=== PATIENT | female | born 1985 | race Caucasian/White ===

== ENCOUNTER 2017-04-05 15:03 | Emergency (ER) | payer MEDICAID ==
[~2017-04-05] VITALS: Ht 154.9 cm; Wt 60.4 kg
[~2017-04-05 15:03] MED LIST: CLON2TAB PO
[2017-04-05 16:26] LABS: MICROSCOPIC AUTO
[2017-04-05 16:29] LABS: CULTURE INDICATED? YES
[2017-04-05] MEDS ORDERED: PHENAZOPYRIDINE 200 MG TABLET PO ONE (17:00)
[2017-04-05] MEDS ORDERED: MORPHINE SULFATE 4 MG/ML, 1ML IVPush ONE (17:00)
[2017-04-05] MEDS ORDERED: CEFDINIR 300 MG CAPSULE PO ONE (17:00)
[2017-04-05] MEDS ORDERED: PHENAZOPYRIDINE 200 MG TABLET ONE (17:09)
[2017-04-05] MEDS ORDERED: MORPHINE SULFATE 4 MG/ML, 1ML ONE (17:09)
[2017-04-05] MEDS ORDERED: CEFDINIR 300 MG CAPSULE ONE (17:09)
[2017-04-05 17:47] VITALS: BP 131/87
== END 2017-04-05 17:46 | disposition home or self-care (01) ==
LOC: ED 15:48
DX: N30.90 Cystitis, unspecified without hematuria (principal); N39.0 Urinary tract infection, site not specified; F43.10 Post-traumatic stress disorder, unspecified
CPT/HCPCS: 81001; 87077; 87086; 87186; 96374

== ENCOUNTER 2017-04-07 18:17 | Emergency (ER) | payer MEDICAID ==
[~2017-04-07] VITALS: Ht 154.9 cm; Wt 61.0 kg
[2017-04-07 19:11] LABS: BASOPHILS # (AUTO) 0.03 x10^3/uL (0-0.1); BASOPHILS % (AUTO) 0 % (0-1); EOSINOPHILS # (AUTO) 0.05 x10^3/uL (0-0.4); EOSINOPHILS % (AUTO) 1 % (1-7); LYMPHOCYTES # (AUTO) 2.59 x10^3/uL (1-3.4); LYMPHOCYTES % (AUTO) 30 % (22-44); MD NO; MEAN CORPUSCULAR HEMOGLOBIN 29.7 pg (27.0-34.8); MEAN CORPUSCULAR VOLUME 87.5 fL (80-100); MONOCYTES # (AUTO) 0.84 x10^3/uL (0.2-0.8); MONOCYTES % (AUTO) 10 % (2-9); NEUTROPHILS # (AUTO) 5.19 x10^3/uL (1.8-6.8); NEUTROPHILS % (AUTO) 60 % (42-75); PLATELET COUNT 409 x10^3/uL (130-400); RED BLOOD COUNT 4.65 x10^6/uL (3.82-5.3); RED CELL DISTRIBUTION WIDTH 13.4 % (9.6-15.2)
[2017-04-07 19:16] LABS: ALANINE AMINOTRANSFERASE 33 U/L (12-78); ALBUMIN 3.6 g/dL (3.4-5.0); ANION GAP 5 mmol/L (5-15); CHLORIDE 107 mmol/L (98-107); CREATININE 1.02 mg/dL (0.55-1.02)
[2017-04-07 19:21] LABS: ALKALINE PHOSPHATASE 57 U/L (45-117); BILIRUBIN,TOTAL 0.3 mg/dL (0.2-1.0); TOTAL PROTEIN 7.3 g/dL (6.4-8.2)
[2017-04-07] MEDS ORDERED: AMPICILLIN 1 GM in SODIUM CHLORIDE 0.9% 50 ML IV ONE (19:30)
[2017-04-07] MEDS ORDERED: KETOROLAC 30 MG/1 ML IVPush ONE (19:30)
[2017-04-07] MEDS ORDERED: SODIUM CHLORIDE 0.9% 1,000ML IVBOLUS ONE (19:30)
[2017-04-07] MEDS ORDERED: KETOROLAC 30 MG/1 ML ONE (19:33)
[2017-04-07 20:07] LABS: MICROSCOPIC INDICATED
[2017-04-07 20:08] LABS: CULTURE INDICATED? YES
[2017-04-07 20:59] VITALS: BP 118/79
== END 2017-04-07 21:02 | disposition home or self-care (01) ==
LOC: ED 20:39
DX: N30.00 Acute cystitis without hematuria (principal); F43.10 Post-traumatic stress disorder, unspecified
CPT/HCPCS: 36415; 74176; 80053; 81001; 83690; 84703; 85025; 87086; 96361; 96365; 96375; 99285; J0290; J1885; J7030

== ENCOUNTER 2017-08-16 12:29 | Emergency (ER) | payer MEDICAID ==
[~2017-08-16] VITALS: Ht 154.9 cm; Wt 56.9 kg
[2017-08-16] MEDS ORDERED: MECLIZINE CHEWABLE 25 MG TAB ONE (13:13)
[2017-08-16] MEDS ORDERED: PROMETHAZINE 25 MG/ML, 1ML ONE (13:13)
[2017-08-16 13:23] VITALS: BP 132/84
[2017-08-16] MEDS ORDERED: FUROSEMIDE (13:24)
[2017-08-16] MEDS ORDERED: CARVEDILOL (13:24)
[2017-08-16] MEDS ORDERED: MECLIZINE CHEWABLE 25 MG TAB PO ONE (13:30)
[2017-08-16] MEDS ORDERED: PROMETHAZINE 25 MG/ML, 1ML IM ONE (13:30)
== END 2017-08-16 14:03 | disposition home or self-care (01) ==
LOC: ED 13:50
DX: H66.002 Acute suppurative otitis media without spontaneous rupture of ear drum, left ear (principal); G24.3 Spasmodic torticollis; F43.10 Post-traumatic stress disorder, unspecified; G40.909 Epilepsy, unspecified, not intractable, without status epilepticus; Z90.49 Acquired absence of other specified parts of digestive tract; F17.200 Nicotine dependence, unspecified, uncomplicated; I50.9 Heart failure, unspecified
CPT/HCPCS: 96372; 99283; J2550

== ENCOUNTER 2017-09-15 03:41 | Emergency (ER) | payer MEDICAID ==
[~2017-09-15] VITALS: Ht 154.9 cm; Wt 58.8 kg
[~2017-09-15 03:41] MED LIST changes: +CARVEDILOL; +CLON1TAB PO; +FUROSEMIDE
[2017-09-15] MEDS ORDERED: KETOROLAC 30 MG/1 ML ONE (04:05)
[2017-09-15] MEDS ORDERED: MORPHINE SULFATE 4 MG/ML, 1ML ONE (04:06)
[2017-09-15 04:20] LABS: MICROSCOPIC AUTO
[2017-09-15 04:22] LABS: CULTURE INDICATED? YES
[2017-09-15] MEDS ORDERED: CEFTRIAXONE PMX 1GM/50ML 50 ML IV ONE (04:30)
[2017-09-15] MEDS ORDERED: KETOROLAC 30 MG/1 ML IVPush ONE (04:30)
[2017-09-15] MEDS ORDERED: MORPHINE SULFATE 4 MG/ML, 1ML IVPush PRN (04:30)
[2017-09-15 04:34] LABS: AMPHETAMINE SCREEN, URINE Positive (Negative); BARBITURATE SCREEN, URINE Negative (Negative); BENZODIAZEPINE SCREEN, URINE Positive (Negative); CANNABINOID SCREEN, URINE Positive (Negative); COCAINE SCREEN, URINE Negative (Negative); METHADONE SCREEN, URINE Negative (Negative); OPIATE SCREEN, URINE Negative (Negative)
[2017-09-15 04:41] LABS: BASOPHILS # (AUTO) 0.04 x10^3/uL (0-0.1); BASOPHILS % (AUTO) 0 % (0-1); EOSINOPHILS # (AUTO) 0.12 x10^3/uL (0-0.4); EOSINOPHILS % (AUTO) 1 % (1-7); LYMPHOCYTES # (AUTO) 3.47 x10^3/uL (1-3.4); LYMPHOCYTES % (AUTO) 32 % (22-44); MD NO; MEAN CORPUSCULAR HEMOGLOBIN 31.3 pg (27.0-34.8); MEAN CORPUSCULAR HGB CONC 34.9 g/dL (32.4-35.8); MEAN CORPUSCULAR VOLUME 89.6 fL (80-100); MEAN PLATELET VOLUME 7.8 fL (7.4-10.4); MONOCYTES # (AUTO) 1.06 x10^3/uL (0.2-0.8); MONOCYTES % (AUTO) 10 % (2-9); NEUTROPHILS # (AUTO) 6.07 x10^3/uL (1.8-6.8); NEUTROPHILS % (AUTO) 56 % (42-75); PLATELET COUNT 407 x10^3/uL (130-400); RED BLOOD COUNT 4.58 x10^6/uL (3.82-5.3); RED CELL DISTRIBUTION WIDTH 12.9 % (9.6-15.2)
[2017-09-15] MEDS ORDERED: CEFTRIAXONE PMX 1GM/50ML 50 ML ONE (04:44)
[2017-09-15 04:53] LABS: ALBUMIN 3.7 g/dL (3.4-5.0); ANION GAP 10 mmol/L (5-15); CALCIUM 8.8 mg/dL (8.5-10.1); CHLORIDE 105 mmol/L (98-107)
[2017-09-15 04:59] LABS: ALANINE AMINOTRANSFERASE 22 U/L (12-78); ALKALINE PHOSPHATASE 49 U/L (45-117); BILIRUBIN,TOTAL 0.8 mg/dL (0.2-1.0); CREATININE 1.23 mg/dL (0.55-1.02); TOTAL PROTEIN 7.3 g/dL (6.4-8.2)
[2017-09-15] MEDS ORDERED: SODIUM CHLORIDE 0.9% 1,000ML IVBOLUS ONE (05:00)
[2017-09-15] MEDS ORDERED: LORazepam 2 MG/ML, 1ML ONE (05:14)
[2017-09-15] MEDS ORDERED: LORazepam 2 MG/ML, 1ML IVPush ONE (05:30)
[2017-09-15 06:23] VITALS: BP 124/74
== END 2017-09-15 06:58 | disposition home or self-care (01) ==
LOC: ED 05:56
DX: N30.00 Acute cystitis without hematuria (principal); F15.10 Other stimulant abuse, uncomplicated; F41.1 Generalized anxiety disorder; R45.1 Restlessness and agitation; G40.909 Epilepsy, unspecified, not intractable, without status epilepticus; F17.210 Nicotine dependence, cigarettes, uncomplicated; Z79.899 Other long term (current) drug therapy
CPT/HCPCS: 36415; 71045; 80053; 80307; 81001; 81025; 83690; 83880; 85025; 87086; 96365; 96375; 99285; J0696; J1885; J2060; J7030

== ENCOUNTER 2019-11-02 17:37 | Inpatient (IN) | payer MEDICAID ==
[~2019-11-02] VITALS: Ht 157.5 cm; Wt 64.5 kg
[2019-11-02] MEDS ORDERED: PROMETHAZINE 25 MG/ML, 1ML IM ONE (18:30)
[2019-11-02] MEDS ORDERED: SODIUM CHLORIDE FLUSH 10ML SYR IVF ONE (18:30)
[2019-11-02] MEDS ORDERED: PROMETHAZINE 25 MG/ML, 1ML ONE (18:37)
[2019-11-02 19:09] LABS: MEAN CORPUSCULAR HGB CONC 34.1 g/dL (32.4-35.8); MEAN CORPUSCULAR VOLUME 85.2 fL (80-100); MEAN PLATELET VOLUME 8.3 fL (7.4-10.4); PLATELET COUNT 266 x10^3/uL (130-400); RED BLOOD COUNT 4.97 x10^6/uL (3.82-5.3); RED CELL DISTRIBUTION WIDTH 16.1 % (9.6-15.2)
[2019-11-02 19:17] LABS: ALBUMIN 3.8 g/dL (3.4-5.0); ANION GAP 13 mmol/L (5-15); CHLORIDE 100 mmol/L (98-107); CREATININE 4.47 mg/dL (0.55-1.02)
[2019-11-02 19:22] LABS: ALKALINE PHOSPHATASE 46 U/L (45-117); BILIRUBIN,TOTAL 0.5 mg/dL (0.2-1.0); TOTAL PROTEIN 7.6 g/dL (6.4-8.2)
[2019-11-02 19:24] LABS: ALANINE AMINOTRANSFERASE 32 U/L (12-78)
[2019-11-02 19:31] LABS: MD YES
[2019-11-02 19:39] LABS: BAND#(MANUAL) 0.07 x10^3/uL; BANDS%(MANUAL) 1 % (0-7); EOS#(MANUAL) 0.07 x10^3/uL (0.0-0.4); EOS% (MANUAL) 1 % (1-7); LYMPH#(MANUAL) 2.14 x10^3/uL (1-3.4); LYMPHS% (MANUAL) 31 % (22-44); MONOS% (MANUAL) 16 % (2-9); SEG#(MANUAL) 3.52 x10^3/uL (1.8-6.8); SEGS% (MANUAL) 51 % (42-75)
[2019-11-02 19:40] LABS: <PLATELET ESTIMATE> ADEQUATE; <PLT MORPHOLOGY> NORMAL PLT MORPH; <RBC MORPHOLOGY> NORMAL
--- NOTE | 2019-11-02 21:04 | NUR ---
Assumed care at this time, pt is here for sob and fatigue. Pt has CHF and reports she is retaining fluid. Pt reports she only has a 10% EF at this time. Former drug use.
--- NOTE | 2019-11-02 21:27 | NUR ---
Pt found HOTN upon vitals check, pt 1liter bolus started per md. pt very anxious and moving alot in bed. Pt reports she has very bad pain.
[2019-11-02] MEDS ORDERED: LORazepam 2 MG/ML, 1ML IVPush ONE ×2 (21:30→23:30)
[2019-11-02] MEDS ORDERED: SODIUM CHLORIDE 0.9% 1,000ML IVBOLUS ONE (21:30)
[2019-11-02] MEDS ORDERED: LORazepam 2 MG/ML, 1ML ONE ×2 (21:57→23:19)
--- NOTE | 2019-11-02 22:18 | NUR ---
Previous iv infiltrated, bolus stopped. New iv placed 22g in left ac. Pt bolus restarted and medicated per emar.
--- NOTE | 2019-11-02 23:30 | NUR ---
MD valenzuela informed of pt behaving erratically while sleeping. Informed that pt is becoming more tachycardic and HOTN is intermittent. Pt is struggling with IV BOLUS as she does not keep her arm straight. Pt informed of need to keep arm straight and given pillow for comfort under arm to keep it straight. Pt given 1mg of additional ativan IV for a total of 2mg IV
--- NOTE | 2019-11-02 23:41 | NUR ---
Dr. Goss at bedside.
--- NOTE | 2019-11-02 23:48 | NUR ---
Report to Sherie ALATORRE
--- NOTE | 2019-11-02 23:49 | NUR ---
Report received from LANDRY Celis. This RN to assume care.
[2019-11-03] MEDS: HEPARIN 5,000 UNITS/ML, 1ML SQ SCH ×4 (00:30→23:59)
[2019-11-03] MEDS ORDERED: LABETALOL 5MG/ML, 20ML IVPush PRN (00:30)
[2019-11-03] MEDS ORDERED: LACTATED RINGERS 1,000 ML IV SCH (00:30)
[2019-11-03] MEDS ORDERED: ONDANSETRON 2MG/ML, 2ML IVPush PRN (00:30)
[2019-11-03 00:35] LABS: AMPHETAMINE SCREEN, URINE Positive (Negative); BARBITURATE SCREEN, URINE Negative (Negative); BENZODIAZEPINE SCREEN, URINE Negative (Negative); CANNABINOID SCREEN, URINE Negative (Negative); COCAINE SCREEN, URINE Negative (Negative); METHADONE SCREEN, URINE Negative (Negative); OPIATE SCREEN, URINE Positive (Negative)
[2019-11-03] MEDS ORDERED: PHARMACY MAY ADJ FOR RENAL FX MC PRN (01:00)
--- NOTE | 2019-11-03 01:00 | NUR ---
Report given to LANDRY River. Patient transferred to room 332.
[2019-11-03 01:11] VITALS: BP 122/63
[2019-11-03 04:11] LABS: MICROSCOPIC AUTO
[2019-11-03 04:12] LABS: CHLORIDE,URINE RANDOM 53 mmol/L; POTASSIUM,URINE RANDOM 34 mmol/L; SODIUM,URINE RANDOM 87 mmol/L
[2019-11-03 04:32] LABS: BASOPHILS # (AUTO) 0.03 x10^3/uL (0-0.1); BASOPHILS % (AUTO) 1 % (0-1); EOSINOPHILS # (AUTO) 0.13 x10^3/uL (0-0.4); EOSINOPHILS % (AUTO) 2 % (1-7); LYMPHOCYTES # (AUTO) 1.45 x10^3/uL (1-3.4); LYMPHOCYTES % (AUTO) 25 % (22-44); MD NO; MEAN CORPUSCULAR HEMOGLOBIN 28.8 pg (27.0-34.8); MEAN CORPUSCULAR HGB CONC 33.9 g/dL (32.4-35.8); MEAN PLATELET VOLUME 8.6 fL (7.4-10.4); MONOCYTES # (AUTO) 0.98 x10^3/uL (0.2-0.8); MONOCYTES % (AUTO) 17 % (2-9); NEUTROPHILS # (AUTO) 3.33 x10^3/uL (1.8-6.8); NEUTROPHILS % (AUTO) 56 % (42-75); PLATELET COUNT 263 x10^3/uL (130-400); RED BLOOD COUNT 4.63 x10^6/uL (3.82-5.3); RED CELL DISTRIBUTION WIDTH 16.4 % (9.6-15.2)
[2019-11-03 04:45] LABS: ANION GAP 12 mmol/L (5-15); CALCIUM 8.3 mg/dL (8.5-10.1); CHLORIDE 105 mmol/L (98-107)
[2019-11-03 04:47] LABS: CREATININE 3.04 mg/dL (0.55-1.02)
[2019-11-03 07:23] VITALS: BP 81/57
[2019-11-03] MEDS ORDERED: KETOROLAC 30 MG/1 ML IVPush PRN (09:30)
[2019-11-03] MEDS: KETOROLAC 30 MG/1 ML IVPush PRN ×2 (09:41→22:03)
[2019-11-03 14:00] VITALS: BP 88/53
[2019-11-03 18:39] VITALS: BP 105/65
[2019-11-03] MEDS: LACTATED RINGERS 1,000 ML IV SCH (22:08)
[2019-11-03] MEDS ORDERED: SPIR25TA5 PO (23:51)
[2019-11-03] MEDS ORDERED: FURO-93 PO (23:51)
[2019-11-03] MEDS ORDERED: METO25TA4 PO (23:51)
[2019-11-03] MEDS: OXYcodone IR 5MG TABLET PO PRN (23:58)
[2019-11-04 00:17] VITALS: BP 93/62
[2019-11-04] MEDS: NICOTINE 21 MG/24 HR PATCH.TD24 TD SCH (00:32)
[2019-11-04 06:21] VITALS: BP 138/85
[2019-11-04 08:46] LABS: BASOPHILS # (AUTO) 0.02 x10^3/uL (0-0.1); BASOPHILS % (AUTO) 0 % (0-1); EOSINOPHILS # (AUTO) 0.27 x10^3/uL (0-0.4); EOSINOPHILS % (AUTO) 6 % (1-7); LYMPHOCYTES # (AUTO) 2.38 x10^3/uL (1-3.4); LYMPHOCYTES % (AUTO) 48 % (22-44); MD NO; MEAN CORPUSCULAR HEMOGLOBIN 28.1 pg (27.0-34.8); MEAN CORPUSCULAR HGB CONC 32.3 g/dL (32.4-35.8); MEAN PLATELET VOLUME 8.3 fL (7.4-10.4); MONOCYTES # (AUTO) 0.93 x10^3/uL (0.2-0.8); MONOCYTES % (AUTO) 19 % (2-9); NEUTROPHILS # (AUTO) 1.35 x10^3/uL (1.8-6.8); NEUTROPHILS % (AUTO) 27 % (42-75); PLATELET COUNT 253 x10^3/uL (130-400); RED BLOOD COUNT 4.32 x10^6/uL (3.82-5.3); RED CELL DISTRIBUTION WIDTH 16.2 % (9.6-15.2)
[2019-11-04] MEDS: OXYcodone IR 5MG TABLET PO PRN (08:48)
[2019-11-04] MEDS: HEPARIN 5,000 UNITS/ML, 1ML SQ SCH ×2 (08:48→16:30)
[2019-11-04 08:56] LABS: ANION GAP 7 mmol/L (5-15); CALCIUM 8.7 mg/dL (8.5-10.1); CHLORIDE 108 mmol/L (98-107); CREATININE 2.47 mg/dL (0.55-1.02)
[2019-11-04] MEDS: LISINOPRIL 5 MG TABLET PO SCH (10:40)
[2019-11-04 12:23] VITALS: BP 103/67
[2019-11-04] MEDS: KETOROLAC 30 MG/1 ML IVPush PRN (18:12)
[2019-11-04 18:22] VITALS: BP 107/73
[2019-11-04] MEDS: LACTATED RINGERS 1,000 ML IV SCH (20:29)
[2019-11-04] MEDS ORDERED: ZOLPIDEM 5MG TABLET PO ONE (23:00)
[2019-11-05] MEDS: HEPARIN 5,000 UNITS/ML, 1ML SQ SCH ×3 (00:03→18:30)
[2019-11-05 00:19] VITALS: BP 127/85
[2019-11-05] MEDS: NICOTINE 21 MG/24 HR PATCH.TD24 TD SCH ×2 (00:30→15:05)
[2019-11-05 07:25] VITALS: BP 105/72
[2019-11-05 11:15] VITALS: BP 102/64
[2019-11-05] MEDS: LISINOPRIL 5 MG TABLET PO SCH (11:23)
[2019-11-05 13:16] VITALS: BP 124/75
[2019-11-05] MEDS ORDERED: hydrOXyzine 50MG TABLET PO PRN (14:30)
[2019-11-05 14:58] LABS: ANION GAP 8 mmol/L (5-15); CALCIUM 8.1 mg/dL (8.5-10.1); CHLORIDE 111 mmol/L (98-107)
[2019-11-05 14:59] LABS: CREATININE 1.41 mg/dL (0.55-1.02)
[2019-11-05] MEDS: ALPRazolam 1MG TAB PO PRN ×2 (14:59→22:11)
[2019-11-05 20:09] VITALS: BP 156/100
[2019-11-06 01:19] VITALS: BP 144/99
[2019-11-06] MEDS: HEPARIN 5,000 UNITS/ML, 1ML SQ SCH ×2 (02:30→10:06)
[2019-11-06 05:35] LABS: ANION GAP 6 mmol/L (5-15); CHLORIDE 109 mmol/L (98-107); CREATININE 1.23 mg/dL (0.55-1.02)
[2019-11-06 05:36] LABS: BASOPHILS # (AUTO) 0.05 x10^3/uL (0-0.1); BASOPHILS % (AUTO) 1 % (0-1); EOSINOPHILS # (AUTO) 0.09 x10^3/uL (0-0.4); EOSINOPHILS % (AUTO) 1 % (1-7); LYMPHOCYTES # (AUTO) 2.74 x10^3/uL (1-3.4); LYMPHOCYTES % (AUTO) 39 % (22-44); MD NO; MEAN CORPUSCULAR HEMOGLOBIN 28.5 pg (27.0-34.8); MEAN CORPUSCULAR HGB CONC 32.8 g/dL (32.4-35.8); MEAN PLATELET VOLUME 8.3 fL (7.4-10.4); MONOCYTES # (AUTO) 0.66 x10^3/uL (0.2-0.8); MONOCYTES % (AUTO) 9 % (2-9); NEUTROPHILS # (AUTO) 3.49 x10^3/uL (1.8-6.8); NEUTROPHILS % (AUTO) 50 % (42-75); PLATELET COUNT 269 x10^3/uL (130-400); RED BLOOD COUNT 4.71 x10^6/uL (3.82-5.3); RED CELL DISTRIBUTION WIDTH 15.1 % (9.6-15.2)
[2019-11-06 07:30] VITALS: BP 130/83
[2019-11-06] MEDS: LISINOPRIL 5 MG TABLET PO SCH (10:06)
[2019-11-06] MEDS: ALPRazolam 1MG TAB PO PRN (10:06)
== END 2019-11-06 13:21 | disposition left against medical advice (07) | DRG 682 ==
LOC: ED 21:55 → EDIP 22:17 → 3N 11-03 01:09
PROVIDERS: ADMIT Family Medicine; ATTEND Hospitalist
DX: N17.0 Acute kidney failure with tubular necrosis (principal); G92 Toxic encephalopathy; I50.23 Acute on chronic systolic (congestive) heart failure; E87.1 Hypo-osmolality and hyponatremia; I42.9 Cardiomyopathy, unspecified; F43.10 Post-traumatic stress disorder, unspecified; F17.200 Nicotine dependence, unspecified, uncomplicated; F15.10 Other stimulant abuse, uncomplicated; E86.1 Hypovolemia; N18.3 Chronic kidney disease, stage 3 (moderate); I34.0 Nonrheumatic mitral (valve) insufficiency; R10.31 Right lower quadrant pain; F41.9 Anxiety disorder, unspecified; T42.4X5A Adverse effect of benzodiazepines, initial encounter; Z90.49 Acquired absence of other specified parts of digestive tract; Z03.818 Encounter for observation for suspected exposure to other biological agents ruled out; Z90.5 Acquired absence of kidney; Z88.1 Allergy status to other antibiotic agents; Z88.5 Allergy status to narcotic agent; Z88.8 Allergy status to other drugs, medicaments and biological substances
CPT/HCPCS: 36415; 71045; 74176; 76770; 80048; 80053; 80307; 81001; 82436; 82550; 82570; 83605; 83690; 83880; 84132; 84133; 84300; 84443; 84703; 85025; 87635; 93005; 93306; 96372; 96374; 99285; G0378; J1644; J1885; J2550; J2060; J7030; J7120

== ENCOUNTER 2019-11-16 02:23 | Emergency (ER) | payer MEDICAID ==
[~2019-11-16] VITALS: Ht 157.5 cm; Wt 59.6 kg
[~2019-11-16 02:23] MED LIST changes: +FURO-93 PO; +METO25TA4 PO; +SPIR25TA5 PO
[2019-11-16 02:24] VITALS: BP 148/98
--- NOTE | 2019-11-16 02:56 | NUR ---
PT AMBULATORY TO BATHROOM, NOW SLEEPING IN BED, EYES CLOSED, RESPIRATIONS EVEN AND UNLABORED.
[2019-11-16] MEDS ORDERED: AZITHROMYCIN 500 MG TABLET PO ONE (03:00)
[2019-11-16] MEDS ORDERED: CEFTRIAXONE 250 MG IM ONE (03:00)
[2019-11-16] MEDS ORDERED: CEFTRIAXONE 250 MG ONE (03:08)
[2019-11-16] MEDS ORDERED: AZITHROMYCIN 250 MG TABLET ONE (03:08)
[2019-11-16] MEDS ORDERED: BICILLIN-LA 2,400,000 UNITS/4 ML IM ONE (03:30)
== END 2019-11-16 03:24 | disposition home or self-care (01) ==
LOC: ED 02:46
DX: A53.9 Syphilis, unspecified (principal); R10.9 Unspecified abdominal pain; I50.9 Heart failure, unspecified; F17.200 Nicotine dependence, unspecified, uncomplicated; G40.909 Epilepsy, unspecified, not intractable, without status epilepticus; Z90.89 Acquired absence of other organs; Z90.49 Acquired absence of other specified parts of digestive tract; Z90.5 Acquired absence of kidney
CPT/HCPCS: 96372; 99283; J0561

== ENCOUNTER 2019-12-20 12:40 | Emergency (ER) | payer MEDICAID ==
[~2019-12-20] VITALS: Ht 154.9 cm; Wt 61.0 kg
--- NOTE | 2019-12-20 14:07 | NUR ---
PT PROVIDED WITH WARM BLANKETS. CLEAN CATCH URINE COLLECTED AND SENT. ERP AT BEDSIDE FOR EVAL. PT DENIES ANY FURTHER NEEDS, CALL LIGHT IN REACH.
[2019-12-20] MEDS ORDERED: ASPIRIN 81 MG TABLET CHEW PO ONE (14:30)
--- NOTE | 2019-12-20 14:38 | NUR ---
PT PROVIDED WITH ORAL LIQUIDS IN PREP FOR STRAIGHT CATH. DENIES ANY FURTHER NEEDS. CALL LIGHT IN REACH.
[2019-12-20 14:40] LABS: BASOPHILS # (AUTO) 0.03 x10^3/uL (0-0.1); BASOPHILS % (AUTO) 0 % (0-1); EOSINOPHILS # (AUTO) 0.23 x10^3/uL (0-0.4); EOSINOPHILS % (AUTO) 3 % (1-7); LYMPHOCYTES # (AUTO) 2.94 x10^3/uL (1-3.4); LYMPHOCYTES % (AUTO) 33 % (22-44); MD NO; MEAN CORPUSCULAR HEMOGLOBIN 29.9 pg (27.0-34.8); MEAN CORPUSCULAR HGB CONC 33.9 g/dL (32.4-35.8); MEAN CORPUSCULAR VOLUME 88.1 fL (80-100); MEAN PLATELET VOLUME 7.9 fL (7.4-10.4); MONOCYTES # (AUTO) 0.86 x10^3/uL (0.2-0.8); MONOCYTES % (AUTO) 10 % (2-9); NEUTROPHILS % (AUTO) 55 % (42-75); PLATELET COUNT 368 x10^3/uL (130-400); RED BLOOD COUNT 4.81 x10^6/uL (3.82-5.3); RED CELL DISTRIBUTION WIDTH 15.9 % (9.6-15.2)
[2019-12-20] MEDS ORDERED: ASPIRIN 81 MG TABLET CHEW ONE (14:40)
[2019-12-20 14:52] LABS: ALANINE AMINOTRANSFERASE 26 U/L (12-78); ALBUMIN 3.4 g/dL (3.4-5.0); ANION GAP 5 mmol/L (5-15); CALCIUM 8.6 mg/dL (8.5-10.1); CHLORIDE 113 mmol/L (98-107); CREATININE 0.86 mg/dL (0.55-1.02)
[2019-12-20 14:57] LABS: ALKALINE PHOSPHATASE 59 U/L (45-117); BILIRUBIN,TOTAL 0.3 mg/dL (0.2-1.0); TOTAL PROTEIN 6.8 g/dL (6.4-8.2); TROPONIN I < 0.015 ng/mL (0.000-0.045)
[2019-12-20] MEDS ORDERED: MORPHINE SULFATE 4 MG/ML, 1ML ONE ×2 (15:03→16:53)
[2019-12-20] MEDS: MORPHINE SULFATE 4 MG/ML, 1ML IVPush PRN ×2 (15:06→16:55)
[2019-12-20 15:38] LABS: MICROSCOPIC AUTO
--- NOTE | 2019-12-20 15:45 | NUR ---
IV STARTED WITH ULTRASOUND GUIDANCE, VIA XOCHITL ALATORRE. PT MEDICATED PER JUN. STRAIGHT CATH PERFORMED WITHOUT ISSUE. CXR AT BEDSIDE. PT AWAITING U/S AT THIS TIME. DENIES ANY FURTHER NEEDS OR CONCERNS, CALL LIGHT IN REACH.
--- NOTE | 2019-12-20 15:52 | NUR ---
PT TO ULTRASOUND AT THIS TIME.
[2019-12-20 18:56] VITALS: BP 112/64
== END 2019-12-20 18:57 | disposition home or self-care (01) ==
LOC: ED 13:30
DX: N30.00 Acute cystitis without hematuria (principal); R10.30 Lower abdominal pain, unspecified; G40.909 Epilepsy, unspecified, not intractable, without status epilepticus; R00.1 Bradycardia, unspecified; I50.9 Heart failure, unspecified; Z90.49 Acquired absence of other specified parts of digestive tract
CPT/HCPCS: 36415; 71045; 76830; 80053; 81001; 83690; 83880; 84484; 84703; 85025; 87077; 87086; 87186; 93005; 96374; 96376; 99285; J2270

== ENCOUNTER 2020-01-19 15:04 | Emergency (ER) | payer MEDICAID ==
[~2020-01-19] VITALS: Ht 154.9 cm; Wt 63.5 kg
--- NOTE | 2020-01-19 15:21 | NUR ---
ERP AT BEDSIDE FOR EVAL.
[2020-01-19] MEDS ORDERED: PROMETHAZINE 25 MG/ML, 1ML IM ONE (15:30)
[2020-01-19] MEDS ORDERED: DIPHENHYDRAMINE 50 MG/ML, 1ML IVPush ONE (15:30)
[2020-01-19] MEDS ORDERED: SODIUM CHLORIDE 0.9% 1,000ML IVBOLUS ONE (15:30)
[2020-01-19] MEDS ORDERED: PROMETHAZINE 25 MG/ML, 1ML ONE (15:40)
--- NOTE | 2020-01-19 15:45 | NUR ---
UNABLE PLACE PIC, REQUESTED ULTRASOUND PLACEMENT. INJ PHENERGAN NOW, TO CT.
[2020-01-19] MEDS ORDERED: DIPHENHYDRAMINE 50 MG/ML, 1ML ONE (15:53)
[2020-01-19] MEDS ORDERED: DIPHENHYDRAMINE 50 MG/ML, 1ML IM ONE (16:00)
--- NOTE | 2020-01-19 16:02 | NUR ---
UNABLE TO PLACE PIC, ERP INFORMED PT WITH STABLE VS. CHANGED TO IM MEDS. PT IN AGREEMENT
[2020-01-19] MEDS ORDERED: KETOROLAC 30 MG/1 ML IM ONE (16:30)
[2020-01-19] MEDS ORDERED: KETOROLAC 30 MG/1 ML ONE (16:42)
[2020-01-19 16:51] VITALS: BP 124/69
== END 2020-01-19 16:53 | disposition home or self-care (01) ==
LOC: ED 16:31
DX: G44.219 Episodic tension-type headache, not intractable (principal); G40.909 Epilepsy, unspecified, not intractable, without status epilepticus; R11.2 Nausea with vomiting, unspecified; H92.02 Otalgia, left ear; F17.200 Nicotine dependence, unspecified, uncomplicated; Z90.89 Acquired absence of other organs; Z90.49 Acquired absence of other specified parts of digestive tract
CPT/HCPCS: 70450; 96372; 99284; J1200; J1885; J2550

== ENCOUNTER 2020-02-04 21:30 | Emergency (ER) | payer MEDICAID ==
[~2020-02-04] VITALS: Ht 154.9 cm; Wt 65.0 kg
--- NOTE | 2020-02-04 23:06 | NUR ---
CALLED FOR PT. PT NOT IN LOBBY AT THIS TIME.
[2020-02-04 23:33] LABS: ALBUMIN 3.7 g/dL (3.4-5.0); ANION GAP 4 mmol/L (5-15); CALCIUM 8.7 mg/dL (8.5-10.1); CHLORIDE 114 mmol/L (98-107)
[2020-02-04 23:35] LABS: ALANINE AMINOTRANSFERASE 25 U/L (12-78); ALKALINE PHOSPHATASE 56 U/L (45-117); BILIRUBIN,TOTAL 0.3 mg/dL (0.2-1.0); CREATININE 1.14 mg/dL (0.55-1.02); TOTAL PROTEIN 7.4 g/dL (6.4-8.2); TROPONIN I < 0.015 ng/mL (0.000-0.045)
--- NOTE | 2020-02-04 23:37 | NUR ---
SAP TECHNICAL DEVELOPER: PT WALKED BACK FROM LOBBY TO ROOM AT THIS TIME. STEADY UPON AMBULATION.
--- NOTE | 2020-02-04 23:42 | NUR ---
PT AMBULATED BACK TO ROOM WITH A SMOOTH AND STEADY GAIT. PT APPEARS NAD, BUT IS ANXIOUS AND SPEECH IS RUSHED WHILE TALKING TO STAFF, PT STATES CHEST PAIN ON LEFT SIDE THAT FEELS LIKE PRESSURE, GROSS NEURO INTACT, PULSE 2+, NO EDEMA NOTED. WCTM PLACED ON SPO2/BP/ECG MONITORING. RESIDENT AT BS FOR EVAL AND POC.
[2020-02-04 23:54] LABS: BASOPHILS % (AUTO) 1 % (0-1); EOSINOPHILS % (AUTO) 3 % (1-7); LYMPHOCYTES % (AUTO) 38 % (22-44); MEAN CORPUSCULAR HEMOGLOBIN 30.9 pg (27.0-34.8); MONOCYTES % (AUTO) 13 % (2-9); NEUTROPHILS % (AUTO) 45 % (42-75); PLATELET COUNT 314 x10^3/uL (130-400); RED BLOOD COUNT 4.85 x10^6/uL (3.82-5.3); RED CELL DISTRIBUTION WIDTH 12.9 % (9.6-15.2)
[2020-02-04 23:57] LABS: MD NO
[2020-02-05] MEDS ORDERED: LORazepam 2 MG/ML, 1ML IVPush ONE
[2020-02-05] MEDS ORDERED: NITROGLYCERIN OINT 2%, 1GM TP ONE ×2 (00:10)
[2020-02-05] MEDS ORDERED: LABETALOL 20 MG/4 ML ONE ×2 (00:10→00:40)
[2020-02-05] MEDS ORDERED: LORazepam 2 MG/ML, 1ML ONE (00:11)
[2020-02-05] MEDS ORDERED: FUROSEMIDE 40 MG/4 ML IV ONE (00:30)
[2020-02-05] MEDS ORDERED: FUROSEMIDE 40 MG/4 ML ONE (00:40)
[2020-02-05] MEDS: LABETALOL 5MG/ML, 20ML IVPush ONE ×2 (00:46)
--- NOTE | 2020-02-05 00:48 | NUR ---
PER DR FELDMAN PT TO BE GIVEN LOPRESSOR AND LASIX THEN DC
--- NOTE | 2020-02-05 00:53 | NUR ---
PT MEDICATED PER MAR, UP TO RESTROOM AT THIS TIME
[2020-02-05 00:59] VITALS: BP 155/98
== END 2020-02-05 01:01 | disposition home or self-care (01) ==
LOC: ED 02-05 00:06
DX: R07.2 Precordial pain (principal); R06.00 Dyspnea, unspecified; I11.0 Hypertensive heart disease with heart failure; I50.21 Acute systolic (congestive) heart failure; F17.200 Nicotine dependence, unspecified, uncomplicated; Z90.49 Acquired absence of other specified parts of digestive tract
CPT/HCPCS: 36415; 71045; 80053; 83880; 84484; 84703; 85025; 93005; 96374; 96375; 99285; J1940; J2060

== ENCOUNTER 2020-02-29 17:14 | Emergency (ER) | payer MEDICAID ==
[~2020-02-29] VITALS: Ht 162.6 cm; Wt 65.7 kg
--- NOTE | 2020-02-29 17:43 | NUR ---
placed on laboratory monitor lab at bedside
--- NOTE | 2020-02-29 17:44 | NUR ---
radiology at bedside
[2020-02-29 17:57] LABS: BASOPHILS % (AUTO) 1 % (0-1); EOSINOPHILS % (AUTO) 2 % (1-7); LYMPHOCYTES % (AUTO) 32 % (22-44); MEAN CORPUSCULAR HEMOGLOBIN 31.3 pg (27.0-34.8); MEAN CORPUSCULAR HGB CONC 34.4 g/dL (32.4-35.8); MEAN PLATELET VOLUME 8.2 fL (7.4-10.4); MONOCYTES % (AUTO) 10 % (2-9); NEUTROPHILS % (AUTO) 56 % (42-75); PLATELET COUNT 292 x10^3/uL (130-400); RED BLOOD COUNT 4.28 x10^6/uL (3.82-5.3); RED CELL DISTRIBUTION WIDTH 12.3 % (9.6-15.2)
[2020-02-29 17:58] LABS: MD NO
[2020-02-29 18:08] LABS: ALANINE AMINOTRANSFERASE 24 U/L (12-78); ALBUMIN 3.5 g/dL (3.4-5.0); ANION GAP 6 mmol/L (5-15); CHLORIDE 115 mmol/L (98-107); CREATININE 0.95 mg/dL (0.55-1.02)
[2020-02-29 18:22] LABS: ALKALINE PHOSPHATASE 44 U/L (45-117); BILIRUBIN,TOTAL 0.3 mg/dL (0.2-1.0); TOTAL PROTEIN 6.5 g/dL (6.4-8.2); TROPONIN I < 0.015 ng/mL (0.000-0.045)
--- NOTE | 2020-02-29 18:52 | NUR ---
WITH REASSESSMENT- CHEST PAIN REMAINS /10. PROVIDER MADE AWARE BLOOD PRESSURE SLIGHTLY IMPROVED PATIENT REFUSING ASPIRIN
[2020-02-29] MEDS ORDERED: ASPIRIN 81 MG TABLET CHEW PO ONE (19:00)
[2020-02-29] MEDS ORDERED: LABETALOL 5MG/ML, 20ML IVPush ONE (19:30)
[2020-02-29] MEDS ORDERED: LABETALOL 5MG/ML, 20ML ONE (19:30)
[2020-02-29 20:04] VITALS: BP 143/87
--- NOTE | 2020-02-29 20:04 | NUR ---
REPORT TO WAYLON ALATORRE B/P IMPROVED TO 143/87, CHEST PAIN IMPROVED-PROVIDER AWARE
== END 2020-02-29 20:45 | disposition home or self-care (01) ==
LOC: ED 18:20
DX: R07.89 Other chest pain (principal); R05 Cough; R06.00 Dyspnea, unspecified; R42 Dizziness and giddiness; R11.0 Nausea; I11.0 Hypertensive heart disease with heart failure; I50.9 Heart failure, unspecified; F17.200 Nicotine dependence, unspecified, uncomplicated; G40.909 Epilepsy, unspecified, not intractable, without status epilepticus; Z90.49 Acquired absence of other specified parts of digestive tract; Z90.89 Acquired absence of other organs
CPT/HCPCS: 36415; 71045; 80053; 80162; 83880; 84484; 85025; 93005; 96374; 99285

== ENCOUNTER 2020-04-26 18:10 | Emergency (ER) | payer MEDICAID ==
[~2020-04-26] VITALS: Ht 154.9 cm; Wt 66.7 kg
--- NOTE | 2020-04-26 18:32 | NUR ---
PT UP TO BR AT THIS TIME. PT WITH STEADY GAIT
--- NOTE | 2020-04-26 18:53 | NUR ---
report recieved from salvador salguero
[2020-04-26 19:22] LABS: BASOPHILS % (AUTO) 1 % (0-1); EOSINOPHILS % (AUTO) 2 % (1-7); LYMPHOCYTES % (AUTO) 28 % (22-44); MEAN CORPUSCULAR HEMOGLOBIN 30.4 pg (27.0-34.8); MEAN CORPUSCULAR HGB CONC 34.1 g/dL (32.4-35.8); MEAN PLATELET VOLUME 8.2 fL (7.4-10.4); MONOCYTES % (AUTO) 9 % (2-9); NEUTROPHILS % (AUTO) 60 % (42-75); PLATELET COUNT 305 x10^3/uL (130-400); RED CELL DISTRIBUTION WIDTH 12.8 % (9.6-15.2)
[2020-04-26 19:23] LABS: MD NO
[2020-04-26 19:23] LABS: MICROSCOPIC AUTO
[2020-04-26 19:32] LABS: ALANINE AMINOTRANSFERASE 29 U/L (12-78); ALBUMIN 3.8 g/dL (3.4-5.0); ANION GAP 4 mmol/L (5-15); CALCIUM 8.2 mg/dL (8.5-10.1); CHLORIDE 112 mmol/L (98-107); CREATININE 1.28 mg/dL (0.55-1.02)
[2020-04-26 19:34] LABS: ALKALINE PHOSPHATASE 49 U/L (45-117); BILIRUBIN,TOTAL 0.3 mg/dL (0.2-1.0); TOTAL PROTEIN 7.3 g/dL (6.4-8.2)
[2020-04-26 20:10] VITALS: BP 128/62
--- NOTE | 2020-04-26 20:10 | NUR ---
Patient/Caregiver given discharge instructions and they have confirmed that they understand the instructions. Patient ambulatory with steady gait.
== END 2020-04-26 20:11 | disposition home or self-care (01) ==
LOC: ED 19:22
DX: R50.9 Fever, unspecified (principal); Z20.822 Contact with and (suspected) exposure to COVID-19; R05 Cough; R06.00 Dyspnea, unspecified; R06.02 Shortness of breath; J02.9 Acute pharyngitis, unspecified; I11.0 Hypertensive heart disease with heart failure; I50.9 Heart failure, unspecified; G40.909 Epilepsy, unspecified, not intractable, without status epilepticus; Z90.89 Acquired absence of other organs; Z90.49 Acquired absence of other specified parts of digestive tract
CPT/HCPCS: 36415; 71045; 80053; 81001; 85025; 87635; 93005; 99285

== ENCOUNTER 2020-08-11 16:06 | Emergency (ER) | payer MEDICAID ==
[~2020-08-11] VITALS: Ht 154.9 cm; Wt 67.4 kg
[2020-08-11 16:15] VITALS: BP 163/108
--- NOTE | 2020-08-11 16:18 | NUR ---
RACE STARTER: EKG DONE IN TRIAGE.
--- NOTE | 2020-08-11 17:50 | NUR ---
lab and radiology personel have called patient 4 seperate times to attempt scans/labs. No answer x 4.
--- NOTE | 2020-08-11 19:14 | NUR ---
PT NOT IN LOBBY AT THIS TIME
== END 2020-08-11 19:16 | disposition left against medical advice (07) ==
LOC: ED 16:36
DX: R50.9 Fever, unspecified (principal); R07.89 Other chest pain; Z20.822 Contact with and (suspected) exposure to COVID-19; Z53.21 Procedure and treatment not carried out due to patient leaving prior to being seen by health care provider
CPT/HCPCS: 93005; U0003; U0005

== ENCOUNTER 2020-08-16 03:23 | Emergency (ER) | payer MEDICAID ==
[~2020-08-16] VITALS: Ht 154.9 cm; Wt 67.5 kg
[2020-08-16] MEDS ORDERED: FENTANYL PF 100 MCG/2ML IV ONE (04:00)
[2020-08-16] MEDS ORDERED: PROMETHAZINE 25 MG/ML, 1ML IM ONE (04:00)
[2020-08-16] MEDS ORDERED: PROMETHAZINE 25 MG/ML, 1ML ONE (04:11)
[2020-08-16] MEDS ORDERED: FENTANYL PF 100 MCG/2ML ONE (04:11)
[2020-08-16] MEDS ORDERED: LABETALOL 5MG/ML, 20ML ONE (04:13)
[2020-08-16 04:14] LABS: BASOPHILS % (AUTO) 0 % (0-1); EOSINOPHILS % (AUTO) 2 % (1-7); LYMPHOCYTES % (AUTO) 34 % (22-44); MEAN CORPUSCULAR HEMOGLOBIN 30.4 pg (27.0-34.8); MEAN CORPUSCULAR HGB CONC 34.7 g/dL (32.4-35.8); MEAN PLATELET VOLUME 8.4 fL (7.4-10.4); MONOCYTES % (AUTO) 9 % (2-9); NEUTROPHILS % (AUTO) 54 % (42-75); PLATELET COUNT 341 x10^3/uL (130-400); RED BLOOD COUNT 4.96 x10^6/uL (3.82-5.3); RED CELL DISTRIBUTION WIDTH 12.5 % (9.6-15.2)
[2020-08-16 04:16] LABS: MD NO
[2020-08-16 04:22] LABS: ALBUMIN 4.3 g/dL (3.4-5.0); ANION GAP 3 mmol/L (5-15); CALCIUM 9.1 mg/dL (8.5-10.1); CHLORIDE 110 mmol/L (98-107); CREATININE 0.98 mg/dL (0.55-1.02)
[2020-08-16] MEDS ORDERED: LABETALOL 5MG/ML, 20ML IVPush ONE (04:30)
--- NOTE | 2020-08-16 04:36 | NUR ---
antiemetic given IM, pain med given IV, pt stated she felt better after recieving both meds, pain went to immediately to a 7 and was bearable to pt, all needs in reach, call light in reach, side rails up, lights off for pts comfort
--- NOTE | 2020-08-16 04:52 | NUR ---
Pt back from CT, grabbing head c/o 11/14 head pain still. Remains hypertensive, ERP informed waiting for further orders. AIDET provided.
[2020-08-16 04:53] VITALS: BP 180/100
[2020-08-16] MEDS ORDERED: KETOROLAC 30 MG/1 ML IVPush ONE (05:00)
[2020-08-16] MEDS ORDERED: KETOROLAC 30 MG/1 ML ONE ×2 (05:00→05:02)
--- NOTE | 2020-08-16 05:13 | NUR ---
pt a/ox4, pt complained of pain coming back, pain was at a 7 before and now back at 9, MD ordered IV pain meds and it was adminstered by this RN over one minute. Call light in reach, side rails up, bed in low position with brakes engaged, lights off for pts comfort
--- NOTE | 2020-08-16 05:30 | NUR ---
pt states that the pain is down to a 6 now and is much better than before
== END 2020-08-16 05:56 | disposition home or self-care (01) ==
LOC: ED 05:45
DX: R51.9 Headache, unspecified (principal); R11.2 Nausea with vomiting, unspecified; F17.210 Nicotine dependence, cigarettes, uncomplicated; R00.0 Tachycardia, unspecified; I11.0 Hypertensive heart disease with heart failure; I50.9 Heart failure, unspecified; F17.200 Nicotine dependence, unspecified, uncomplicated; Z90.89 Acquired absence of other organs; Z90.49 Acquired absence of other specified parts of digestive tract
CPT/HCPCS: 36415; 70450; 80048; 82040; 84703; 85025; 93005; 96372; 96374; 96375; 99285; 99406; J1885; J2550; J3010

== ENCOUNTER 2020-09-09 05:40 | Emergency (ER) | payer MEDICAID ==
[~2020-09-09] VITALS: Ht 154.9 cm; Wt 64.8 kg
[2020-09-09] MEDS ORDERED: DIPH,PERTUSS(ACELL),TET VAC/PF 0.5 ML IM-VACC ONE (06:00)
[2020-09-09] MEDS ORDERED: PROMETHAZINE 25 MG/ML, 1ML ONE (06:19)
[2020-09-09] MEDS ORDERED: PHENAZOPYRIDINE 200 MG TABLET ONE (06:19)
[2020-09-09] MEDS ORDERED: HYDROmorphone 1 MG/ML, 1ML INJ ONE (06:20)
[2020-09-09] MEDS ORDERED: SODIUM CHLORIDE FLUSH 10ML SYR IVF ONE (06:30)
[2020-09-09] MEDS ORDERED: SODIUM CHLORIDE 0.9% 1,000ML IV ONE (06:30)
[2020-09-09] MEDS ORDERED: HYDROmorphone 1 MG/ML, 1ML INJ IV ONE (06:30)
[2020-09-09] MEDS ORDERED: PROMETHAZINE 25 MG/ML, 1ML IM ONE (06:30)
[2020-09-09] MEDS ORDERED: PHENAZOPYRIDINE 200 MG TABLET PO ONE (06:30)
[2020-09-09 06:44] LABS: BASOPHILS % (AUTO) 1 % (0-1); EOSINOPHILS % (AUTO) 0 % (1-7); LYMPHOCYTES % (AUTO) 25 % (22-44); MEAN CORPUSCULAR HEMOGLOBIN 30.3 pg (27.0-34.8); MEAN CORPUSCULAR HGB CONC 34.8 g/dL (32.4-35.8); MEAN PLATELET VOLUME 8.3 fL (7.4-10.4); MONOCYTES % (AUTO) 14 % (2-9); NEUTROPHILS % (AUTO) 60 % (42-75); PLATELET COUNT 310 x10^3/uL (130-400); RED BLOOD COUNT 4.26 x10^6/uL (3.82-5.3)
[2020-09-09 06:45] LABS: MD NO
[2020-09-09 06:50] LABS: ALANINE AMINOTRANSFERASE 34 U/L (12-78); ALBUMIN 3.9 g/dL (3.4-5.0); ANION GAP 7 mmol/L (5-15); CALCIUM 8.4 mg/dL (8.5-10.1); CHLORIDE 109 mmol/L (98-107); CREATININE 1.06 mg/dL (0.55-1.02)
--- NOTE | 2020-09-09 06:52 | NUR ---
report from judy
[2020-09-09 06:54] LABS: ALKALINE PHOSPHATASE 45 U/L (45-117); BILIRUBIN,TOTAL 0.6 mg/dL (0.2-1.0); TOTAL PROTEIN 7.3 g/dL (6.4-8.2)
[2020-09-09 07:00] LABS: MICROSCOPIC INDICATED
[2020-09-09] MEDS ORDERED: CEFTRIAXONE 1,000 MG in DEXTROSE 5% 50 ML IVPB ONE (07:30)
--- NOTE | 2020-09-09 08:00 | NUR ---
ABX INFUSING. SEEN BY SONDRA SALINAS. PT TO BE DC AFTER ABX
[2020-09-09 08:01] VITALS: BP 163/103
--- NOTE | 2020-09-09 08:45 | NUR ---
Patient given discharge instructions and they have confirmed that they understand the instructions. Patient ambulatory with steady gait.
== END 2020-09-09 08:46 ==
LOC: ED 06:10
DX: N10 Acute pyelonephritis (principal); R10.31 Right lower quadrant pain; R11.2 Nausea with vomiting, unspecified; R56.9 Unspecified convulsions; R30.0 Dysuria; I11.0 Hypertensive heart disease with heart failure; I50.9 Heart failure, unspecified; Z88.9 Allergy status to unspecified drugs, medicaments and biological substances; Z90.89 Acquired absence of other organs; Z90.49 Acquired absence of other specified parts of digestive tract; Z79.899 Other long term (current) drug therapy
CPT/HCPCS: 36415; 80053; 81001; 83605; 83690; 84145; 84703; 85025; 87040; 87077; 87086; 96361; 96365; 96372; 96375; 99284; J0696; J1170; J2550; J7030; 87186

== ENCOUNTER 2020-09-18 15:01 | Emergency (ER) | payer MEDICAID ==
[~2020-09-18] VITALS: Ht 154.9 cm; Wt 64.3 kg
[2020-09-18 15:10] VITALS: BP 162/108
--- NOTE | 2020-09-18 19:04 | NUR ---
NIL X3 [id number]
--- NOTE | 2020-09-18 19:19 | NUR ---
hub cutter: Called for patient, patient not in lobby.
--- NOTE | 2020-09-18 19:37 | NUR ---
director learning: Called for patient, patient not in lobby for 3rd attempt.
== END 2020-09-18 19:39 | disposition left against medical advice (07) ==
LOC: ED 15:50
DX: M79.645 Pain in left finger(s) (principal); M79.644 Pain in right finger(s); M79.602 Pain in left arm; M79.601 Pain in right arm; Z53.21 Procedure and treatment not carried out due to patient leaving prior to being seen by health care provider

== ENCOUNTER 2020-10-10 05:49 | Emergency (ER) | payer MEDICAID ==
[~2020-10-10] VITALS: Ht 154.9 cm; Wt 65.0 kg
--- NOTE | 2020-10-10 06:10 | NUR ---
THIS IS A 35 YO F W/ C/O CP RADIATING INTO RT ARM AND NECK X2 HOURS. PT REPORTS HX OF ANXIETY, CHF, NEPHRECTOMY. RESP EVEN AND UNLABORED, CONNECTED TO ALL MONITORING, CHRISSY. Addendum: 10/10/20 at 0644 by [email or web address] THIS IS A 35 YO F W/ C/O CP RADIATING INTO LT ARM AND NECK X2 HOURS. PT REPORTS HX OF ANXIETY, CHF, NEPHRECTOMY. RESP EVEN AND UNLABORED, CONNECTED TO ALL MONITORING, CHRISSY
--- NOTE | 2020-10-10 06:11 | NUR ---
AT BEDSIDE FOR ED EVAL.
[2020-10-10] MEDS ORDERED: METHOCARBAMOL 750 MG TABLET ONE (06:27)
[2020-10-10] MEDS ORDERED: KETOROLAC 30 MG/1 ML ONE (06:27)
[2020-10-10] MEDS ORDERED: METHOCARBAMOL 750 MG TABLET PO ONE (06:30)
[2020-10-10] MEDS ORDERED: KETOROLAC 30 MG/1 ML IVPush ONE (06:30)
[2020-10-10 06:35] LABS: BASOPHILS % (AUTO) 1 % (0-1); EOSINOPHILS % (AUTO) 3 % (1-7); LYMPHOCYTES % (AUTO) 34 % (22-44); MEAN CORPUSCULAR HEMOGLOBIN 29.9 pg (27.0-34.8); MEAN CORPUSCULAR HGB CONC 34.9 g/dL (32.4-35.8); MEAN PLATELET VOLUME 8.7 fL (7.4-10.4); MONOCYTES % (AUTO) 12 % (2-9); NEUTROPHILS % (AUTO) 51 % (42-75); PLATELET COUNT 348 x10^3/uL (130-400); RED BLOOD COUNT 4.46 x10^6/uL (3.82-5.3); RED CELL DISTRIBUTION WIDTH 13.3 % (9.6-15.2)
--- NOTE | 2020-10-10 06:39 | NUR ---
PIV STARTED, LABS DRAWN, PT MEDICATED PER EMAR. PT HYPERTENSIVE, OTHER VS WDL. PT REPORTS HX OF HTN FOR WHICH SHE TAKES LISINOPRIL BID AND LABETALOL.
--- NOTE | 2020-10-10 06:44 | NUR ---
REPORT FROM LANDRY HAGAN
[2020-10-10 06:45] LABS: ALANINE AMINOTRANSFERASE 22 U/L (12-78); ALBUMIN 3.5 g/dL (3.4-5.0); ANION GAP 5 mmol/L (5-15); CALCIUM 8.8 mg/dL (8.5-10.1); CHLORIDE 113 mmol/L (98-107); CREATININE 1.03 mg/dL (0.55-1.02)
[2020-10-10 06:49] LABS: ALKALINE PHOSPHATASE 58 U/L (45-117); BILIRUBIN,TOTAL 0.1 mg/dL (0.2-1.0); TOTAL PROTEIN 6.8 g/dL (6.4-8.2); TROPONIN I < 0.015 ng/mL (0.000-0.045)
--- NOTE | 2020-10-10 06:56 | NUR ---
PT TAWNYA WILSON, NADN/ VVS BESIDES HYPERTENSIVE. NO NEEDS AT THIS TIME. CALL LIGHT WITHIN REACH, BED IN LOWEST POSITION.
[2020-10-10 07:42] VITALS: BP 168/105
--- NOTE | 2020-10-10 07:58 | NUR ---
Patient given discharge instructions and RX, they have confirmed that they understand the instructions. Patient ambulatory with steady gait.
== END 2020-10-10 07:59 | disposition home or self-care (01) ==
LOC: ED 06:50
DX: R07.89 Other chest pain (principal); I13.0 Hypertensive heart and chronic kidney disease with heart failure and stage 1 through stage 4 chronic kidney disease, or unspecified chronic kidney disease; N18.30 Chronic kidney disease, stage 3 unspecified; I50.9 Heart failure, unspecified; R06.00 Dyspnea, unspecified; R11.0 Nausea; R00.0 Tachycardia, unspecified; G40.909 Epilepsy, unspecified, not intractable, without status epilepticus; Z90.89 Acquired absence of other organs; Z90.49 Acquired absence of other specified parts of digestive tract
CPT/HCPCS: 36415; 71045; 80053; 83880; 84484; 85025; 85379; 93005; 96374; 99285; J1885

== ENCOUNTER 2020-12-21 16:18 | Emergency (ER) | payer MEDICAID ==
[~2020-12-21] VITALS: Ht 154.9 cm; Wt 64.5 kg
[2020-12-21] MEDS ORDERED: SODIUM CHLORIDE 0.9% 1,000ML IVBOLUS ONE (16:30)
[2020-12-21] MEDS ORDERED: SODIUM CHLORIDE FLUSH 10ML SYR IVF ONE (16:30)
[2020-12-21] MEDS ORDERED: MORPHINE SULFATE 4 MG/ML, 1ML IVPush PRN (16:30)
[2020-12-21] MEDS ORDERED: MORPHINE SULFATE 4 MG/ML, 1ML ONE (16:44)
--- NOTE | 2020-12-21 17:02 | NUR ---
PT AMBULATED TO AND WAS ABLE TO VOID A LITTLE BIT. SAMPLE SENT TO LAB. PT REPORTS PAIN/BURNING "LIKE THERE'S A CATHETER IN THERE". NO LEFT KIDNEY. HX OF KIDNEY PROBLEMS SINCE .
--- NOTE | 2020-12-21 17:22 | NUR ---
ERP AT BS. 2ND RN AT BS FOR IV INSERTION.
[2020-12-21 17:29] LABS: MICROSCOPIC AUTO
[2020-12-21 17:53] LABS: BASOPHILS % (AUTO) 0 % (0-1); EOSINOPHILS % (AUTO) 2 % (1-7); LYMPHOCYTES % (AUTO) 33 % (22-44); MEAN CORPUSCULAR HGB CONC 33.9 g/dL (32.4-35.8); MEAN PLATELET VOLUME 8.2 fL (7.4-10.4); MONOCYTES % (AUTO) 11 % (2-9); NEUTROPHILS % (AUTO) 54 % (42-75); PLATELET COUNT 317 x10^3/uL (130-400); RED BLOOD COUNT 4.51 x10^6/uL (3.82-5.3); RED CELL DISTRIBUTION WIDTH 13.1 % (9.6-15.2)
--- NOTE | 2020-12-21 17:57 | NUR ---
PT MEDICATED FOR PAIN. UNDERSTANDS POC.
[2020-12-21 17:58] LABS: ALANINE AMINOTRANSFERASE 25 U/L (12-78); ANION GAP 9 mmol/L (5-15); CALCIUM 9.3 mg/dL (8.5-10.1); CHLORIDE 109 mmol/L (98-107); CREATININE 1.05 mg/dL (0.55-1.02)
[2020-12-21] MEDS ORDERED: CEFTRIAXONE 1,000 MG in DEXTROSE 5% 50 ML IVPB ONE (18:00)
[2020-12-21 18:03] LABS: ALKALINE PHOSPHATASE 52 U/L (45-117); BILIRUBIN,TOTAL 0.2 mg/dL (0.2-1.0); TOTAL PROTEIN 7.5 g/dL (6.4-8.2)
[2020-12-21] MEDS ORDERED: PHENAZOPYRIDINE 200 MG TABLET ONE (18:31)
[2020-12-21] MEDS ORDERED: PHENAZOPYRIDINE 200 MG TABLET PO ONE (19:00)
[2020-12-21 19:02] VITALS: BP 172/115
--- NOTE | 2020-12-21 19:09 | NUR ---
D/C INSTRUCTIONS, MEDS & F/U APPT'S RV'WD WITH PT, SHE VERBALIZES UNDERSTANDING. RX GIVEN X3. INSTRUCTED PT TO F/U WITH BINDERY MACHINE FEEDER OFFBEARER REGARDING BP AND TO RETURN TO ED FOR WORSENING SYMPTOMS. PT AMBULATED OUT OF ED WITHOUT DIFFICULTY.
== END 2020-12-21 19:14 | disposition home or self-care (01) ==
LOC: ED 16:28
DX: N30.00 Acute cystitis without hematuria (principal); I12.9 Hypertensive chronic kidney disease with stage 1 through stage 4 chronic kidney disease, or unspecified chronic kidney disease; N18.30 Chronic kidney disease, stage 3 unspecified; R30.0 Dysuria; R00.0 Tachycardia, unspecified; G40.909 Epilepsy, unspecified, not intractable, without status epilepticus; F17.200 Nicotine dependence, unspecified, uncomplicated; Z90.89 Acquired absence of other organs; Z90.49 Acquired absence of other specified parts of digestive tract
CPT/HCPCS: 36415; 80053; 81001; 84703; 85025; 87086; 96361; 96365; 96375; 99284; J0696; J2270; J7030